=== PATIENT | female | born 1965 | race Caucasian/White ===

== ENCOUNTER 2021-02-18 16:59 | Emergency (ER) | payer OTHER, SELFPAY ==
[2021-02-18 17:15] VITALS: BP 157/88; PULSE 79; RESP 16; TEMP 36.6; O2SAT 100
--- NOTE | 2021-02-18 17:37 | ED.DENTAL ---
HPI - Dental/Oral General Chief complaint: Dental/Oral Stated complaint: Ear Pain Time Seen by Provider: 02/18/21 17:38 Source: patient and RN notes reviewed Mode of arrival: ambulatory Limitations: no limitations History of Present Illness HPI Narrative: 56 year old female who presents to [facility] care with complaints of possible infection to site where she had recent extraction of #22 tooth 1 1/2 weeks ago. She states that she recently ate a day candy bar and she has had redness, swelling,and pain to the site where tooth was extracted for the past 2 days which radiates to her left ear, She reports that pain is a continuous throbbing to her gum with noted increase pain with chewing. She rates her pain as 6/10 and has been taking Tylenol and DayQuil and has been using salt water rinses with no relief of her symptoms. She denies any fevers, chills or sweats, denies any respiratory congestion, ear drainage, decreased hearing or cough. Location: Tooth # (#22 recently removed) Onset (ago): day(s) (2) Duration: constant Severity: moderate Severity scale (1-10): 6 Relieving factors: nothing Exacerbating factors: chewing Context: other (recent extraction) Associated symptoms: gum swelling and ear pain Treatment prior to arrival: oral analgesic and other (salt water rinses) Related Data Allergies Allergy/AdvReac Type Severity Reaction Status Date / Time naproxen Allergy Intermediate Wheezing Verified 02/18/21 17:06 Review of Systems Review of Systems: Narrative: CONSTITUTIONAL: Denies fever, chills, or sweats. EYES: Denies visual changes, redness, or discharge. ENT: Denies rhinorrhea, congestion, sore throat, positive for left ear otalgia, left lower gum swelling redness and pain where #22 tooth removed CARDIOVASCULAR: Denies chest pain, palpitations, or edema. RESPIRATORY: Denies cough or dyspnea. GASTROINTESTINAL: Denies abdominal pain, nausea, vomiting, or diarrhea. GENITOURINARY: Denies dysuria or hematuria. SKIN: Denies rash or itching. MUSCULOSKELETAL: Denies back pain, joint pain, or myalgia. NEUROLOGIC: Denies headache, numbness, or weakness. PSYCHIATRIC: Denies anxiety or depression. All systems reviewed & are unremarkable except as noted in HPI and below [facility] Past Medical History Medical History (Updated 02/24/21 @ 10:55 by Kae Rodrigues NP) Obesity Surgical History Surgical History (Updated 02/18/21 @ 17:48 by Kae Rodrigues NP) H/O tubal ligation Previous section Family History Family History (Updated 02/18/21 @ 17:49 by Kae Rodrigues NP) Father Diabetes mellitus Social History Social History (Updated 02/18/21 @ 17:50 by Kae Rodrigues NP) Smoking status: Never smoker Alcohol intake: never Substance use: never Living arrangements: with family Gender identity (if verbalized by the patient): Female Comments At time of signature, agree with nursing past medical, surgical, social and family history. There is no relevant family history pertinent to the presenting complaint Exam Narrative: Exam Narrative: GENERAL: Well-appearing, well-nourished, and in no acute distress. HEAD: Normocephalic, atraumatic. EYES: PERRLA and EOMI. ENT: Nares clear, no rhinorrhea or epistaxis. Mucous membranes moist.TMs normal with good light reflex, throat pink with no lesions or exudates, no tonsil redness or enlargement, swelling and redness of gum left lower gum where #22 tooth removed, no drainage noted. NECK: Supple.no lymphadenopathy, no Ubaldo angina CHEST: Clear to auscultation. No respiratory distress, SAO2 100% on room air. HEART: Regular rate and rhythm. No murmur heard. Normal peripheral pulses. ABDOMEN: Soft, nontender, nondistended, normal active bowel sounds. EXTREMITIES: Normal range of motion. No edema. SKIN: Warm, dry, no rash. NEURO: No focal deficits. Alert and oriented x3. Course Vital Signs Vital signs: Vital Signs Temperature 36.6 C 02/18/21 17:15 Pulse Rat
== END 2021-02-18 18:00 | disposition home or self-care (01) ==
PROVIDERS: Emergency Provider Registered Nurse
DX: K06.1 Gingival enlargement (principal); K08.89 Other specified disorders of teeth and supporting structures; H92.02 Otalgia, left ear; E66.9 Obesity, unspecified
CPT/HCPCS: 99213; G0463

== ENCOUNTER 2023-10-20 14:22 | Emergency (ER) | payer OTHER, SELFPAY ==
[2023-10-20 14:45] VITALS: BP 111/64; PULSE 82; RESP 16; TEMP 36.6; O2SAT 99
--- NOTE | 2023-10-20 14:54 | ED.URI ---
HPI - URI/Sore Throat General Chief Complaint: Upper Respiratory Infection Stated Complaint: cough History of Present Illness HPI Narrative: PATIENT PRESENTS WITH A DRY HACKY COUGH WORSE WHEN SHE LAYS DOWN AT NIGHT. NO SHORTNESS OF BREATH NO CHEST PAIN SOME NASAL CONGESTION. PATIENT IS NOT TAKING ANYTHING [id number] FOR HER SYMPTOMS DENIES ANY HISTORY OF ASTHMA OR COPD. Related Data Allergies Allergy/AdvReac Type Severity Reaction Status Date / Time naproxen Allergy Intermediate Wheezing Verified 02/18/21 17:06 Review of Systems Review of Systems: CONSTITUTIONAL: DENIES CHILLS, OR SWEATS. REPORTS FEVER AND GENERALIZED BODY ACHES EYES: DENIES VISUAL CHANGES, REDNESS, OR DISCHARGE. ENT: DENIES OTALGIA. REPORTS NASAL CONGESTION RUNNY NOSE AND SORE THROAT CARDIOVASCULAR: DENIES CHEST PAIN, PALPITATIONS, OR EDEMA. RESPIRATORY: DENIES DYSPNEA. REPORTS OCCASIONAL COUGH GASTROINTESTINAL: DENIES ABDOMINAL PAIN, NAUSEA, VOMITING, OR DIARRHEA. GENITOURINARY: DENIES DYSURIA OR HEMATURIA. SKIN: DENIES RASH OR ITCHING. MUSCULOSKELETAL: DENIES BACK PAIN, JOINT PAIN, OR MYALGIA. REPORTS GENERALIZED BODY ACHES NEUROLOGIC: DENIES HEADACHE, NUMBNESS, OR WEAKNESS. PSYCHIATRIC: DENIES ANXIETY OR DEPRESSION. [facility] Past Medical History Medical History (Updated 10/20/23 @ 14:59 by TERRY Kamara) Obesity Surgical History Surgical History (Updated 02/18/21 @ 17:48 by Kae Rodrigues NP) H/O tubal ligation Previous section Family History Family History (Updated 02/18/21 @ 17:49 by Kae Rodrigues NP) Father Diabetes mellitus Social History Social History (Updated 02/18/21 @ 17:50 by Kae Rodrigues NP) Smoking status: Never smoker Alcohol intake: never Substance use: never Living arrangements: with family Gender identity (if verbalized by the patient): Female Comments AT TIME OF SIGNATURE, AGREE WITH NURSING PAST MEDICAL, SURGICAL, SOCIAL AND FAMILY HISTORY. THERE IS NO RELEVANT FAMILY HISTORY PERTINENT TO THE PRESENTING COMPLAINT Exam Narrative: THE PATIENT IS A WELL-DEVELOPED, WELL-NOURISHED IN NO ACUTE DISTRESS. SKIN: SKIN IS WARM AND DRY WITHOUT ERYTHEMA, SWELLING OR EXUDATE. THERE IS GOOD TURGOR. NO TENTING. HEAD: ATRAUMATIC. NORMOCEPHALIC. NO TEMPORAL OR SCALP TENDERNESS. EYES: MOIST AND BRIGHT. SCLERA AND CONJUNCTIVAE NORMAL. NO DISCHARGE. PERRLA. EXTRAOCULAR MOTIONS INTACT. GROSS VISUAL ACUITY INTACT. EARS: PINNA IS NORMAL SHAPE AND CONTOUR. CLEAR EXTERNAL AUDITORY CANALS. TM PEARLY FLORENTINO WITH GOOD CONE OF LIGHT, NO ERYTHEMA OR SUPPURATION. BILATERAL CERUMEN NOTED NO GROSS HEARING DEFICIT. NOSE: PINK, MOIST MUCOSA WITH GOOD AIR MOVEMENT. CLEAR RHINORRHEA WITHOUT NASAL FLARING. SEPTUM MIDLINE. MOUTH: MOIST MUCOUS MEMBRANES. THROAT; MILD ERYTHEMA NOTED TO POSTERIOR OROPHARYNX WITH MODERATE POSTNASAL DRAINAGE. WITHOUT EXUDATE OR ULCERATION.. UVULA MIDLINE. NORMAL MOVEMENT OF SOFT PALATE. NECK: SUPPLE AND NONTENDER WITH FULL RANGE OF MOTION WITHOUT DISCOMFORT. NO MENINGEAL SIGNS. LUNGS: EQUAL AND BILATERAL BREATH SOUNDS WITHOUT WHEEZES, RALES OR RHONCHI. CHEST: THE CHEST WALL IS WITHOUT RETRACTIONS OR USE OF ACCESSORY MUSCLES. HEART: HAS A REGULAR RATE AND RHYTHM WITHOUT MURMUR, GALLOPS, CLICK OR RUB. ABDOMEN: SOFT, NONTENDER WITH POSITIVE ACTIVE BOWEL SOUNDS. NO REBOUND TENDERNESS. EXTREMITIES: WITHOUT CYANOSIS, CLUBBING OR EDEMA. EQUAL 2+ DISTAL PULSES AND 2 SECOND CAPILLARY REFILL NOTED. NEUROLOGIC: ALERT, ACTIVE, . THE PATIENT MOVES ALL EXTREMITIES WITH NORMAL MUSCLE STRENGTH. NORMAL MUSCLE TONE IS NOTED. NORMAL COORDINATION IS NOTED. NO FOCAL NEUROLOGICAL FINDINGS NOTED. Course Course Level of Care: Express Care Visit Vital Signs Vital signs: Vital Signs Temperature 36.6 C 10/20/23 14:45 Pulse Rate 82 10/20/23 14:45 Respiratory Rate 16 10/20/23 14:45 Blood Pressure 111/64 10/20/23 14:45 Pulse Oximetry 99 10/20/23 14:45 Oxygen Delivery Room Air
== END 2023-10-20 15:06 | disposition home or self-care (01) ==
PROVIDERS: Emergency Provider Nurse Practitioner Family
DX: J40 Bronchitis, not specified as acute or chronic (principal); J06.9 Acute upper respiratory infection, unspecified; E66.9 Obesity, unspecified
CPT/HCPCS: 99213; G0463

== ENCOUNTER 2024-02-08 13:03 | Emergency (ER) | payer OTHER, SELFPAY ==
--- NOTE | ~2024-02-08 | XR_ITS ---
XR hip LT 1V DATE: 02/08/2024 13:22 INDICATION: Fell on glass today. Possible foreign body TECHNIQUE: Single Oblique View of the Left hip COMPARISON: None FINDINGS: A 2.5 mm subtle hyperdensity is noted overlying the proximal left thigh, possibly small sof t tissue calcification versus radiopaque foreign body. No subcutaneous emphysema is evident. This is a limited and incomplete evaluation for any possible left hip fracture; standard AP and later al left hip views would be required for such. IMPRESSION: Limited examination Reviewed, dictated and finalized at location A. IMPRESSION: Limited examination
[2024-02-08 13:05] VITALS: BP 118/74; PULSE 73; RESP 18; TEMP 36.8; O2SAT 100
--- NOTE | 2024-02-08 13:14 | ED.GENADULT ---
HPI - General Adult General Chief complaint: Unspecified Stated complaint: FB in buttock History of Present Illness HPI narrative: 59-year-old female present to the emergency department for evaluation for a piece of glass in her left lateral hip. Patient was cleaning up the back of a pickup truck when she slipped and landed a glass. Patient initially presented to urgent care and then was deferred to the emergency department. Related Data Allergies Allergy/AdvReac Type Severity Reaction Status Date / Time naproxen Allergy Intermediate Wheezing Verified 02/18/21 17:06 Review of Systems Review of Systems: All systems reviewed & are unremarkable except as noted in HPI and below PMFSH Past Medical History Medical History (Updated 02/08/24 @ 13:42 by Gavin Wilhelm MD) Obesity Surgical History Surgical History (Updated 02/18/21 @ 17:48 by Kae Rodrigues NP) H/O tubal ligation Previous section Family History Family History (Updated 02/18/21 @ 17:49 by Kae Rodrigues NP) Father Diabetes mellitus Social History Social History (Updated 02/18/21 @ 17:50 by Kae Rodrigues NP) Smoking status: Never smoker Alcohol intake: never Substance use: never Living arrangements: with family Gender identity (if verbalized by the patient): Female Exam Narrative: APPEARANCE: Well appearing, no pain, no distress, well-nourished. HEAD: normocephalic, atraumatic. EYES: PERRLA/EOMI, conjunctivae clear. NOSE: Normal no drainage EARS:TMS clear with good light reflex. THROAT: Pharynx clear, no exudate. NECK: Supple. No adenopathy, no masses. RESPIRATORY: Airway patent, respirations nonlabored. Clear to auscultation bilaterally, no rales, rhonchi, wheezing. CARDIOVASCULAR: Regular rate and rhythm without murmurs rubs or gallops. ABDOMINAL: Soft, nontender, nondistended, normal bowel sounds MUSCULOSKELETAL: Moves all extremities. Strength/ROM intact, No edema, No calf tenderness. NEURO: Alert. Cranial nerves II through XII intact. Grossly intact SKIN: Warm, dry. Normal Color Course Vital Signs Vital signs: Vital Signs Temperature 98.2 F 02/08/24 13:05 Pulse Rate 73 02/08/24 13:05 Respiratory Rate 18 02/08/24 13:05 Blood Pressure 118/74 02/08/24 13:05 Pulse Oximetry 100 02/08/24 13:05 Oxygen Delivery Room Air 02/08/24 13:05 Temperature 98.2 F 02/08/24 13:05 Pulse Rate 73 02/08/24 13:05 Respiratory Rate 18 02/08/24 13:05 Blood Pressure 118/74 02/08/24 13:05 Pulse Oximetry 100 02/08/24 13:05 Oxygen Delivery Room Air 02/08/24 13:05 Procedures Laceration Laceration 1: Site: lower extremity Side (If applicable): left Size (cm): 5 Description: linear and stellate Depth: simple, single layer Local Anesthetic: lidocaine 1% and with epi Amount of anesthesia used (mL): 5 Pre-repair: wound explored, irrigated and irrigated extensively ====== Skin Level ====== Skin layer closed with: nylon Size (cm): 4-0 Number of sutures: 4 Technique: simple, interrupted ====== Subcutaneous Layer ====== ====== Muscle Layer ====== ====== Tendon Layer ====== Medical Decision Making MDM Narrative Medical decision making narrative: 59-year-old female presented to the emergency department for glass and her left leg. Glass was removed and wound was irrigated. Wound was repaired as described in the procedure note. Patient's tetanus was updated. Vital Signs Vital Signs: Vital Signs Temperature 98.2 F 02/08/24 13:05 Pulse Rate 73 02/08/24 13:05 Respiratory Rate 18 02/08/24 13:05 Blood Pressure 118/74 02/08/24 13:05 Pulse Oximetry 100 02/08/24 13:05 Oxygen Delivery Room Air 02/08/24 13:05 Temperature 98.2 F 02/08/24 13:05 Pulse Rate 73 02/08/24 13:05 Respiratory Rate 18 02/08/24 13:05 Blood Pressure 118/74 02/08/24 13
[2024-02-08] MEDS: CEPHALEXIN 500 MG CAPSULE PO (14:06)
== END 2024-02-08 14:07 | disposition home or self-care (01) ==
PROVIDERS: Emergency Provider Emergency Medicine
DX: S71.022A Laceration with foreign body, left hip, initial encounter (principal); E66.9 Obesity, unspecified; Z68.41 Body mass index [BMI] 40.0-44.9, adult; W01.110A Fall on same level from slipping, tripping and stumbling with subsequent striking against sharp glass, initial encounter
CPT/HCPCS: 12002; 73501; 99283; A9270